=== PATIENT | male | born 1970 | race Caucasian/White ===

== ENCOUNTER 2016-05-13 08:16 | Emergency (ER) | payer BC ==
[~2016-05-13] VITALS: Ht 177.8 cm; Wt 86.4 kg
[2016-05-13 08:20] VITALS: TEMP 97.6
[2016-05-13] MEDS ORDERED: NORCO 325 MG-51 TAB PO (09:47)
[2016-05-13] MEDS ORDERED: CEPHALEXIN500 M1 PO (09:47)
[2016-05-13 11:05] VITALS: BP 147/103; PULSE 77
== END 2016-05-13 11:05 | disposition home or self-care (01) ==
LOC: COL.ER 08:16
DX: S67.192A Crushing injury of right middle finger, initial encounter (principal); S62.662A Nondisplaced fracture of distal phalanx of right middle finger, initial encounter for closed fracture; S61.312A Laceration without foreign body of right middle finger with damage to nail, initial encounter; Z23 Encounter for immunization; W23.0XXA Caught, crushed, jammed, or pinched between moving objects, initial encounter; Y92.009 Unspecified place in unspecified non-institutional (private) residence as the place of occurrence of the external cause

== ENCOUNTER 2016-05-14 10:54 | Emergency (ER) | payer BC ==
[~2016-05-14] VITALS: Ht 177.8 cm; Wt 88.6 kg
[~2016-05-14 10:54] MED LIST: CEPHALEXIN500 M1 PO; NORCO 325 MG-51 TAB PO
[2016-05-14 11:27] VITALS: BP 111/73; PULSE 58; TEMP 98.3
== END 2016-05-14 11:33 | disposition home or self-care (01) ==
LOC: COL.ER 10:54
DX: S61.312D Laceration without foreign body of right middle finger with damage to nail, subsequent encounter (principal); S67.192D Crushing injury of right middle finger, subsequent encounter; S62.632D Displaced fracture of distal phalanx of right middle finger, subsequent encounter for fracture with routine healing; W23.0XXD Caught, crushed, jammed, or pinched between moving objects, subsequent encounter

== ENCOUNTER → 2021-04-13 | Outpatient (CLI) | payer BC | LOC: COL.RAD 03-31 09:45 | DX: N28.89 Other specified disorders of kidney and ureter (principal) ==

== ENCOUNTER → 2021-04-22 | Outpatient (CLI) | payer BC | LOC: COL.RAD 07:17 | DX: K76.0 Fatty (change of) liver, not elsewhere classified (principal) | CPT/HCPCS: Q9967 ==

== ENCOUNTER 2021-09-23 10:45 | Day surgery (SDC) | payer BC ==
[~2021-09-23] VITALS: Ht 180.3 cm; Wt 100.2 kg
[2021-09-23] MEDS ORDERED: PROTONIX 40MG T40 MG PO (11:00)
[2021-09-23] MEDS ORDERED: NORVASC 5MG5 MG/TAB PO (11:00)
[2021-09-23] MEDS ORDERED: COZAAR 50MG50 MG/TAB PO (11:01)
[2021-09-23] MEDS ORDERED: LIPITOR20 MG PO (11:01)
[2021-09-23 11:04] VITALS: BP 137/98; PULSE 86; TEMP 97.5
[2021-09-23 12:40] VITALS: BP 101/79; PULSE 86; TEMP 97.5
[2021-09-23 12:55] VITALS: BP 110/79; PULSE 75; TEMP 96.8
== END 2021-09-23 13:20 ==
LOC: SDCO 10:45
DX: Z12.11 Encounter for screening for malignant neoplasm of colon (principal); D12.2 Benign neoplasm of ascending colon; D12.3 Benign neoplasm of transverse colon; I10 Essential (primary) hypertension; K21.9 Gastro-esophageal reflux disease without esophagitis
CPT/HCPCS: J2704; J7120